=== PATIENT | male | born 1985 | race Caucasian/White ===

== ENCOUNTER 2019-02-02 02:10 | Emergency (ER) | payer OTHER ==
[~2019-02-02] VITALS: Ht 185.4 cm; Wt 86.4 kg
[2019-02-02] MEDS ORDERED: LIB5 PO (02:35)
[2019-02-02 04:35] VITALS: BP 141/97
== END 2019-02-02 04:39 | disposition home or self-care (01) ==
LOC: EMS 02:12
DX: R04.2 Hemoptysis (principal); F17.210 Nicotine dependence, cigarettes, uncomplicated

== ENCOUNTER 2021-11-16 20:28 | Emergency (ER) | payer OTHER ==
[~2021-11-16] VITALS: Ht 182.9 cm; Wt 86.8 kg
[~2021-11-16 20:28] MED LIST: CHLO5CAP4 PO
[2021-11-16 22:49] LABS: BASOPHILS % (AUTO) 1.4 % (0.0-2.0); EOSINOPHILS % (AUTO) 1.8 % (1.0-6.0); HEMATOCRIT 40.7 % (41-53); HEMOGLOBIN 14.1 g/dL (13.5-17.5); LYMPHOCYTES # (AUTO) 1.6 K/uL (1.0-4.8); LYMPHOCYTES % (AUTO) 29.6 % (22.0-44.0); MEAN CORPUSCULAR HEMOGLOBIN 33.3 pg (26.0-34.0); MEAN CORPUSCULAR HGB CONC 34.5 G/dL (31.0-37.0); MEAN CORPUSCULAR VOLUME 96 fL (80-100); MONOCYTES # (AUTO) 0.8 K/uL (0.1-1.0); MONOCYTES % (AUTO) 16.1 % (2.0-9.0); NEUTROPHILS # (AUTO) 2.7 K/uL (1.8-7.7); NEUTROPHILS % (AUTO) 51.1 % (40.0-70.0); PLATELET COUNT (AUTO) 121 K/uL (150-450); RED BLOOD CELL COUNT(AUTO) 4.22 MIL/uL (4.50-5.90); RED CELL DISTRIBUTION WIDTH 16.6 % (11.5-14.5)
[2021-11-16 22:59] LABS: ALANINE AMINOTRANSFERASE 240 U/L (12-78); ALKALINE PHOSPHATASE 141 U/L (46-116); ANION GAP 17 mmol/L (8-16); ASPARTATE AMINOTRANSFERASE 374 U/L (15-37); BILIRUBIN,TOTAL 1.1 mg/dL (0.1-1.0); CALCIUM, TOTAL 9.4 mg/dL (8.8-10.5); CARBON DIOXIDE 27 mmol/L (22-29); CHLORIDE 100 mmol/L (98-107); CREATININE 0.64 mg/dL (0.60-1.30); GLUCOSE,RANDOM 104 mg/dL (70-110); PHOSPHORUS 3.2 mg/dL (2.5-4.9); SODIUM SERUM 144 mmol/L (136-145); TOTAL PROTEIN, SERUM 8.6 g/dL (6.4-8.2); UREA NITROGEN, BLOOD 7 mg/dL (7-18)
[2021-11-16 23:04] LABS: GLOMERULAR FILTR. RATE CALC > 60 mL/min (>60)
[2021-11-16] MEDS ORDERED: MAGNESIUM OXIDE 400 MG TABLET PO ONE (23:15)
[2021-11-16] MEDS ORDERED: POTASSIUM CHLORIDE 20 MEQ ER TABLET PO ONE (23:15)
[2021-11-16 23:26] VITALS: BP 129/87
== END 2021-11-16 23:43 | disposition home or self-care (01) ==
LOC: EMS 20:31
DX: F10.239 Alcohol dependence with withdrawal, unspecified (principal); E87.6 Hypokalemia; E83.42 Hypomagnesemia; F17.210 Nicotine dependence, cigarettes, uncomplicated; Z85.89 Personal history of malignant neoplasm of other organs and systems; Z98.890 Other specified postprocedural states; Y90.8 Blood alcohol level of 240 mg/100 ml or more
CPT/HCPCS: 99283; 80053; 83735; 84100; 85025; 36415; G0480

== ENCOUNTER 2022-08-02 01:39 | Emergency (ER) | payer OTHER ==
[~2022-08-02] VITALS: Ht 182.9 cm; Wt 84.1 kg
[2022-08-02] MEDS ORDERED: MAGNESIUM SULFATE 2 GM, MVI, ADULT NO.1 WITH VIT K 10 ML, THIAMINE 100 MG, FOLIC ACID 1... IV ONE ×5 (02:00)
[2022-08-02 02:24] LABS: BASOPHILS % (AUTO) 0.5 % (0.0-2.0); EOSINOPHILS % (AUTO) 0.9 % (1.0-6.0); HEMATOCRIT 39.5 % (41-53); HEMOGLOBIN 13.5 g/dL (13.5-17.5); LYMPHOCYTES % (AUTO) 41.3 % (22.0-44.0); MEAN CORPUSCULAR HEMOGLOBIN 31.6 pg (26.0-34.0); MEAN CORPUSCULAR HGB CONC 34.1 G/dL (31.0-37.0); MEAN CORPUSCULAR VOLUME 93 fL (80-100); MONOCYTES # (AUTO) 0.6 K/uL (0.1-1.0); MONOCYTES % (AUTO) 7.8 % (2.0-9.0); NEUTROPHILS # (AUTO) 3.6 K/uL (1.8-7.7); NEUTROPHILS % (AUTO) 49.5 % (40.0-70.0); PLATELET COUNT (AUTO) 85 K/uL (150-450); RED BLOOD CELL COUNT(AUTO) 4.26 MIL/uL (4.50-5.90); RED CELL DISTRIBUTION WIDTH 14.1 % (11.5-14.5)
[2022-08-02 02:35] LABS: ANION GAP 9 mmol/L (8-16); CALCIUM, TOTAL 8.3 mg/dL (8.8-10.5); CARBON DIOXIDE 27 mmol/L (22-29); CHLORIDE 104 mmol/L (98-107); CREATININE 0.64 mg/dL (0.60-1.30); GLOMERULAR FILTR. RATE CALC > 60 mL/min (>60); GLUCOSE,RANDOM 117 mg/dL (70-110); POTASSIUM 3.4 mmol/L (3.5-5.1); SODIUM SERUM 140 mmol/L (136-145); UREA NITROGEN, BLOOD 10 mg/dL (7-18)
[2022-08-02 02:39] LABS: INR 1.1 (0.9-1.1); PROTHROMBIN TIME 11.4 SEC (9.4-11.6)
[2022-08-02 02:41] LABS: ALANINE AMINOTRANSFERASE 35 U/L (12-78); ALBUMIN 3.7 g/dL (3.4-5.0); ALKALINE PHOSPHATASE 102 U/L (46-116); ASPARTATE AMINOTRANSFERASE 72 U/L (15-37); BILIRUBIN,TOTAL 0.5 mg/dL (0.1-1.0); TOTAL PROTEIN, SERUM 7.9 g/dL (6.4-8.2)
[2022-08-02 02:49] LABS: B-TYPE NATRIURETIC PEPTIDE < 5 pg/mL (0-100)
[2022-08-02] MEDS ORDERED: ChlordiazePOXIDE HCL 25 MG CAPSULE PO ONE ×2 (03:00→06:15)
[2022-08-02 05:16] LABS: APPEARANCE,URINE CLEAR (CLEAR); BILIRUBIN,URINE NEGATIVE (NEGATIVE); GLUCOSE, URINE (UA) NEGATIVE (NEGATIVE); KETONES,URINE NEGATIVE (NEGATIVE); LEUKOCYTE ESTERASE ,URINE NEGATIVE (NEGATIVE); NITRATE,URINE NEGATIVE (NEGATIVE); OCCULT BLOOD,URINE NEGATIVE (NEGATIVE); PH,URINE 6.5 (5.0-8.0); PROTEIN,URINE TRACE mg/dL (NEGATIVE); SPECIFIC GRAVITIY, URINE 1.014 (1.003-1.030); UROBILINOGEN,URINE <=1.0 mg/dL (<=1.0)
[2022-08-02] MEDS ORDERED: LIB25 PO (05:46)
[2022-08-02 06:23] VITALS: BP 138/88
== END 2022-08-02 06:25 | disposition home or self-care (01) ==
LOC: EMS 01:40
DX: F10.129 Alcohol abuse with intoxication, unspecified (principal); R07.89 Other chest pain; F41.9 Anxiety disorder, unspecified; I10 Essential (primary) hypertension; F17.210 Nicotine dependence, cigarettes, uncomplicated; Z98.890 Other specified postprocedural states
CPT/HCPCS: 99285; 96365; 71045; 80053; 81003; 83735; 83880; 84484; 85025; 85610; 85730; 36415; 93005; G0480; J3490 ×2; J3411; J3475; J7030

== ENCOUNTER 2022-11-09 12:59 | Emergency (ER) | payer MEDICAID, OTHER ==
[~2022-11-09] VITALS: Ht 182.9 cm; Wt 83.0 kg
[~2022-11-09 12:59] MED LIST changes: -CHLO5CAP4 PO; +LIB25 PO
[2022-11-09 13:00] VITALS: BP 150/99; PULSE 125; RESP 16; TEMP 98.3
== END 2022-11-09 15:27 | disposition left against medical advice (07) ==
LOC: EMS 12:59
DX: Z53.21 Procedure and treatment not carried out due to patient leaving prior to being seen by health care provider (principal)
CPT/HCPCS: 99281; Z7502

== ENCOUNTER 2022-11-09 15:30 | Inpatient (IN) | payer OTHER ==
[~2022-11-09] VITALS: Ht 182.9 cm; Wt 92.0 kg
[2022-11-09] MEDS ORDERED: LORazepam 2 MG/ML VIAL IVP ONE (16:00)
[2022-11-09 16:20] LABS: EOSINOPHILS % (AUTO) 1.5 % (1.0-6.0); HEMATOCRIT 43.8 % (41-53); HEMOGLOBIN 14.9 g/dL (13.5-17.5); LYMPHOCYTES # (AUTO) 2.8 K/uL (1.0-4.8); LYMPHOCYTES % (AUTO) 28.5 % (22.0-44.0); MEAN CORPUSCULAR HEMOGLOBIN 31.5 pg (26.0-34.0); MEAN CORPUSCULAR HGB CONC 34.1 G/dL (31.0-37.0); MEAN CORPUSCULAR VOLUME 93 fL (80-100); MONOCYTES # (AUTO) 0.9 K/uL (0.1-1.0); MONOCYTES % (AUTO) 8.8 % (2.0-9.0); NEUTROPHILS # (AUTO) 5.9 K/uL (1.8-7.7); NEUTROPHILS % (AUTO) 60.2 % (40.0-70.0); PLATELET COUNT (AUTO) 152 K/uL (150-450); RED BLOOD CELL COUNT(AUTO) 4.73 MIL/uL (4.50-5.90); RED CELL DISTRIBUTION WIDTH 13.8 % (11.5-14.5)
[2022-11-09 16:24] LABS: COVID AG,FIA SOURCE NASOPHARYNGEAL
[2022-11-09 16:52] LABS: ANION GAP 13 mmol/L (8-16); CALCIUM, TOTAL 8.4 mg/dL (8.8-10.5); CARBON DIOXIDE 28 mmol/L (22-29); CHLORIDE 101 mmol/L (98-107); CREATININE 0.67 mg/dL (0.60-1.30); GLOMERULAR FILTR. RATE CALC > 60 mL/min (>60); GLUCOSE,RANDOM 85 mg/dL (70-110); POTASSIUM 3.2 mmol/L (3.5-5.1); SODIUM SERUM 141 mmol/L (136-145)
[2022-11-09 17:02] LABS: ALANINE AMINOTRANSFERASE 63 U/L (12-78); ALKALINE PHOSPHATASE 91 U/L (46-116); ASPARTATE AMINOTRANSFERASE 92 U/L (15-37); TOTAL PROTEIN, SERUM 7.7 g/dL (6.4-8.2)
[2022-11-09 17:04] LABS: MAGNESIUM 1.6 mg/dL (1.80-2.40); PHOSPHORUS 1.9 mg/dL (2.5-4.9)
[2022-11-09] MEDS ORDERED: ACETAMINOPHEN 325 MG TABLET PO PRN (17:30)
[2022-11-09] MEDS ORDERED: MAGNESIUM SULFATE 1 GM in DEXTROSE 5%-WATER 50 ML IV ONE (17:30)
[2022-11-09] MEDS ORDERED: ONDANSETRON HCL 4 MG/2 ML VIAL IVP PRN (17:30)
[2022-11-09] MEDS ORDERED: POTASSIUM PHOS,M-BASIC-D-BASIC 20 MMOL in DEXTROSE 5%-WATER 150 ML IV ONE (17:30)
[2022-11-09] MEDS ORDERED: 0.9% SODIUM CHLORIDE 10 ML SYRINGE IVP PRN (17:30)
[2022-11-09 20:58] VITALS: BP 142/91; PULSE 92; RESP 22; TEMP 98.1
[2022-11-09 21:56] VITALS: BP 142/91
[2022-11-09] MEDS ORDERED: MAGNESIUM OXIDE 400 MG TABLET PO PRN (22:00)
[2022-11-09] MEDS ORDERED: 1: MAGNESIUM SULFATE 2 GM, MVI, ADULT NO.1 WITH VIT K 10 ML, THIAMINE 100 MG, FOLIC ACID IV SCH ×5 (22:00)
[2022-11-09] MEDS ORDERED: POTASSIUM CHLORIDE 20 MEQ ER TABLET PO PRN (22:00)
[2022-11-09] MEDS ORDERED: POTASSIUM CHL 10 MEQ/WATER 50 ML IV PRN (22:00)
[2022-11-09] MEDS ORDERED: MAGNESIUM SULFATE 2 GM/WATER 50 ML IV PRN (22:00)
[2022-11-09] MEDS ORDERED: SODIUM,POTASSIUM PHOSPHATES POWDER PACKET PO ONE (22:00)
[2022-11-09] MEDS ORDERED: MAGNESIUM SULFATE 4 GM/WATER 100 ML IV PRN (22:00)
[2022-11-09] MEDS ORDERED: SODIUM CHLORIDE 0.9% 250 ML IV ONE (22:17)
[2022-11-09] MEDS: LORazepam 2 MG TABLET PO PRN (22:20)
[2022-11-10 00:09] VITALS: BP 135/81; PULSE 84; RESP 22; TEMP 98.3
[2022-11-10] MEDS: HEPARIN SODIUM,PORCINE 5,000 UNITS/ML VIAL SQ SCH ×3 (00:12→16:19)
[2022-11-10] MEDS: LORazepam 2 MG TABLET PO PRN (00:30)
[2022-11-10 05:28] VITALS: BP 127/76; PULSE 70; RESP 16; TEMP 97.9
[2022-11-10] MEDS ORDERED: LORazepam 2 MG TABLET PO PRN (07:00)
[2022-11-10 07:06] LABS: BASOPHILS % (AUTO) 0.8 % (0.0-2.0); EOSINOPHILS % (AUTO) 3.3 % (1.0-6.0); HEMATOCRIT 41.1 % (41-53); LYMPHOCYTES # (AUTO) 1.5 K/uL (1.0-4.8); LYMPHOCYTES % (AUTO) 22.5 % (22.0-44.0); MEAN CORPUSCULAR HEMOGLOBIN 31.6 pg (26.0-34.0); MEAN CORPUSCULAR HGB CONC 34.1 G/dL (31.0-37.0); MEAN CORPUSCULAR VOLUME 93 fL (80-100); MONOCYTES # (AUTO) 0.5 K/uL (0.1-1.0); MONOCYTES % (AUTO) 8.1 % (2.0-9.0); NEUTROPHILS # (AUTO) 4.2 K/uL (1.8-7.7); NEUTROPHILS % (AUTO) 65.3 % (40.0-70.0); PLATELET COUNT (AUTO) 125 K/uL (150-450); RED BLOOD CELL COUNT(AUTO) 4.43 MIL/uL (4.50-5.90); RED CELL DISTRIBUTION WIDTH 13.9 % (11.5-14.5)
[2022-11-10 07:31] LABS: ALANINE AMINOTRANSFERASE 62 U/L (12-78); ALBUMIN 3.4 g/dL (3.4-5.0); ALKALINE PHOSPHATASE 86 U/L (46-116); ANION GAP 9 mmol/L (8-16); ASPARTATE AMINOTRANSFERASE 92 U/L (15-37); CALCIUM, TOTAL 7.9 mg/dL (8.8-10.5); CARBON DIOXIDE 28 mmol/L (22-29); CHLORIDE 102 mmol/L (98-107); CREATININE 0.63 mg/dL (0.60-1.30); GLOMERULAR FILTR. RATE CALC > 60 mL/min (>60); GLUCOSE,RANDOM 86 mg/dL (70-110); POTASSIUM 3.4 mmol/L (3.5-5.1); SODIUM SERUM 139 mmol/L (136-145); TOTAL PROTEIN, SERUM 6.9 g/dL (6.4-8.2)
[2022-11-10] MEDS: DOCUSATE SODIUM 100 MG CAPSULE PO SCH ×2 (08:13→20:41)
[2022-11-10 08:17] VITALS: BP 135/63; PULSE 77; RESP 18; TEMP 98
[2022-11-10] MEDS ORDERED: LORazepam 2 MG TABLET PO SCH (09:00)
[2022-11-10] MEDS ORDERED: MAGNESIUM SULFATE 4 GM/WATER 100 ML IV PRN (10:00)
[2022-11-10] MEDS ORDERED: MAGNESIUM SULFATE 2 GM/WATER 50 ML IV PRN (10:00)
[2022-11-10] MEDS ORDERED: LORazepam 2 MG/ML VIAL IVP PRN (10:00)
[2022-11-10] MEDS ORDERED: MAGNESIUM OXIDE 400 MG TABLET PO PRN (10:00)
[2022-11-10] MEDS ORDERED: POTASSIUM CHL 10 MEQ/WATER 50 ML IV PRN (10:00)
[2022-11-10 11:25] VITALS: BP 117/80; PULSE 62; RESP 19; TEMP 98.3
[2022-11-10 15:21] VITALS: BP 134/75; PULSE 63; RESP 18; TEMP 98.9
[2022-11-10] MEDS ORDERED: ChlordiazePOXIDE HCL 25 MG CAPSULE PO PRN (16:00)
[2022-11-10] MEDS: ChlordiazePOXIDE HCL 25 MG CAPSULE PO SCH ×2 (16:19→20:41)
[2022-11-10] MEDS: ONDANSETRON HCL 4 MG/2 ML VIAL IVP PRN (19:28)
[2022-11-10 20:19] VITALS: BP 146/94; PULSE 83; RESP 20; TEMP 98.5
[2022-11-11] VITALS (7 sets, daily range): BP systolic 114–151; BP diastolic 68–97; PULSE 60–110; RESP 17–20; TEMP 97.7–98.5
[2022-11-11] MEDS: HEPARIN SODIUM,PORCINE 5,000 UNITS/ML VIAL SQ SCH ×3 (01:48→15:12)
[2022-11-11] MEDS: ACETAMINOPHEN 325 MG TABLET PO PRN ×2 (05:07→20:03)
[2022-11-11] MEDS: POTASSIUM CHLORIDE 20 MEQ ER TABLET PO PRN ×2 (05:08→12:32)
[2022-11-11] MEDS ORDERED: ChlordiazePOXIDE HCL 25 MG CAPSULE PO PRN (07:00)
[2022-11-11] MEDS ORDERED: ChlordiazePOXIDE HCL 25 MG CAPSULE PO SCH (09:00)
[2022-11-11] MEDS: DOCUSATE SODIUM 100 MG CAPSULE PO SCH ×2 (09:02→20:03)
[2022-11-11] MEDS: ONDANSETRON HCL 4 MG/2 ML VIAL IVP PRN (09:02)
[2022-11-11] MEDS: ChlordiazePOXIDE HCL 25 MG CAPSULE PO SCH ×4 (09:02→20:03)
[2022-11-11 09:48] LABS: ALANINE AMINOTRANSFERASE 66 U/L (12-78); ALBUMIN 3.4 g/dL (3.4-5.0); ALKALINE PHOSPHATASE 89 U/L (46-116); ANION GAP 13 mmol/L (8-16); ASPARTATE AMINOTRANSFERASE 94 U/L (15-37); BILIRUBIN,TOTAL 1.6 mg/dL (0.1-1.0); CALCIUM, TOTAL 8.3 mg/dL (8.8-10.5); CARBON DIOXIDE 25 mmol/L (22-29); CHLORIDE 101 mmol/L (98-107); CREATININE 0.56 mg/dL (0.60-1.30); GLOMERULAR FILTR. RATE CALC > 60 mL/min (>60); GLUCOSE,RANDOM 96 mg/dL (70-110); LIPASE 34 U/L (16-77); POTASSIUM 3.4 mmol/L (3.5-5.1); SODIUM SERUM 139 mmol/L (136-145); TOTAL PROTEIN, SERUM 6.9 g/dL (6.4-8.2)
[2022-11-12] MEDS: HEPARIN SODIUM,PORCINE 5,000 UNITS/ML VIAL SQ SCH ×3 (00:56→16:38)
[2022-11-12 00:59] VITALS: BP 135/84; PULSE 89; RESP 18; TEMP 98
[2022-11-12 05:30] VITALS: BP 135/71; PULSE 75; RESP 18; TEMP 98.3
[2022-11-12] MEDS ORDERED: LORazepam 1 MG TABLET PO PRN (07:00)
[2022-11-12 08:32] VITALS: BP 133/99; PULSE 98; RESP 17; TEMP 97.7
[2022-11-12] MEDS ORDERED: CITALOPRAM HYDROBROMIDE 20 MG TABLET PO SCH (09:00)
[2022-11-12] MEDS ORDERED: LORazepam 1 MG TABLET PO SCH (09:00)
[2022-11-12] MEDS: DOCUSATE SODIUM 100 MG CAPSULE PO SCH ×2 (09:49→20:53)
[2022-11-12] MEDS: ChlordiazePOXIDE HCL 25 MG CAPSULE PO SCH (09:50)
[2022-11-12] MEDS: ACETAMINOPHEN 325 MG TABLET PO PRN (09:57)
[2022-11-12 11:00] VITALS: BP 118/76; PULSE 86; RESP 17; TEMP 97.7
[2022-11-12 15:00] VITALS: BP 126/85; PULSE 72; RESP 18; TEMP 98.6
[2022-11-12] MEDS ORDERED: ChlordiazePOXIDE HCL 10 MG CAPSULE PO SCH (16:00)
[2022-11-12] MEDS ORDERED: LORazepam 2 MG TABLET PO PRN (17:45)
[2022-11-12] MEDS ORDERED: CITA-144 PO (17:45)
[2022-11-12] MEDS ORDERED: MULTIVITAMINS WITH MINERALS, THERAPEUTIC TABLET PO SCH (17:45)
[2022-11-12] MEDS ORDERED: HEPA500018 SQ (17:47)
[2022-11-12] MEDS ORDERED: ACET-784 PO (17:50)
[2022-11-12] MEDS ORDERED: ONDA4TAB96 PO (17:51)
[2022-11-12] MEDS ORDERED: MAGN400T29 PO (17:51)
[2022-11-12] MEDS ORDERED: MULT-413 PO (17:59)
[2022-11-12] MEDS ORDERED: LORA-1001 PO (18:42)
[2022-11-12 20:44] VITALS: BP 143/90; PULSE 102; RESP 18; TEMP 98.6
[2022-11-12 23:34] LABS: COVID AG,FIA SOURCE NASOPHARYNGEAL
[2022-11-13] MEDS ORDERED: ChlordiazePOXIDE HCL 10 MG CAPSULE PO PRN (07:00)
[2022-11-13] MEDS ORDERED: LORazepam 1 MG TABLET PO PRN (07:00)
[2022-11-13] MEDS ORDERED: ChlordiazePOXIDE HCL 10 MG CAPSULE PO SCH (09:00)
[2022-11-14] MEDS ORDERED: ChlordiazePOXIDE HCL 10 MG CAPSULE PO PRN (07:00)
== END 2022-11-12 23:00 | DRG 433 ==
LOC: EMS 15:31 → 5S 20:00
PROVIDERS: ADMIT Internal Medicine; ATTEND Internal Medicine
DX: K70.10 Alcoholic hepatitis without ascites (principal); F10.239 Alcohol dependence with withdrawal, unspecified; R45.851 Suicidal ideations; E83.39 Other disorders of phosphorus metabolism; E83.42 Hypomagnesemia; Z20.822 Contact with and (suspected) exposure to COVID-19; F32.9 Major depressive disorder, single episode, unspecified; F10.229 Alcohol dependence with intoxication, unspecified; E87.6 Hypokalemia; F41.9 Anxiety disorder, unspecified; I10 Essential (primary) hypertension; Z79.899 Other long term (current) drug therapy; Z85.6 Personal history of leukemia; Z87.891 Personal history of nicotine dependence
CPT/HCPCS: 70450; 70486; 80053; 82040; 83690; 83735; 84100; 84132; 85025; 99285; G0480; J1644; J2060; J2405; J3411; J3475; J3490; J7030; J7050; J7060

== ENCOUNTER 2022-11-12 15:13 | Inpatient (IN) | payer MEDICAID ==
[~2022-11-12] VITALS: Ht 182.9 cm; Wt 84.0 kg
[2022-11-12] MEDS ORDERED: CITA-144 PO (17:45)
[2022-11-12] MEDS ORDERED: HEPA500018 SQ (17:47)
[2022-11-12] MEDS ORDERED: ACET-784 PO (17:50)
[2022-11-12] MEDS ORDERED: ONDA4TAB96 PO (17:51)
[2022-11-12] MEDS ORDERED: MAGN400T29 PO (17:51)
[2022-11-12] MEDS ORDERED: MULT-413 PO (17:59)
[2022-11-12] MEDS ORDERED: LORA-1001 PO (18:42)
[2022-11-13] MEDS ORDERED: ZOLPIDEM TARTRATE 10 MG TABLET PO PRN (00:15)
[2022-11-13] MEDS ORDERED: HALOPERIDOL 5 MG TABLET PO PRN (00:15)
[2022-11-13] MEDS ORDERED: LORazepam 2 MG TABLET PO PRN (00:15)
[2022-11-13 00:49] VITALS: BP 127/86; PULSE 90; RESP 18; TEMP 97.2; O2SAT 99
[2022-11-13 08:16] VITALS: BP 130/96; PULSE 89; RESP 20; TEMP 98; O2SAT 96
[2022-11-13] MEDS ORDERED: BENZOCAINE/MENTHOL LOZENGE PO PRN (08:30)
[2022-11-13] MEDS ORDERED: ONDANSETRON HCL 4 MG TABLET PO PRN (08:30)
[2022-11-13] MEDS ORDERED: DOCUSATE SODIUM 100 MG CAPSULE PO PRN (08:30)
[2022-11-13] MEDS ORDERED: OMEPRAZOLE 20 MG CAPSULE PO PRN (08:30)
[2022-11-13] MEDS ORDERED: ACETAMINOPHEN 325 MG TABLET PO PRN (08:30)
[2022-11-13] MEDS ORDERED: MAGNESIUM HYDROXIDE SUSPENSION 30 ML UDCUP PO PRN (08:30)
[2022-11-13] MEDS ORDERED: LOPERAMIDE HCL 2 MG CAPSULE PO PRN (08:30)
[2022-11-13] MEDS ORDERED: BACITRACIN 28 GM OINTMENT TP PRN (08:30)
[2022-11-13] MEDS ORDERED: MAG HYDROX/AL HYDROX/SIMETH ES 30 ML SUSPENSION UDCUP PO PRN (08:30)
[2022-11-13] MEDS ORDERED: CloNIDine HCL 0.1 MG TABLET PO PRN (08:30)
[2022-11-13] MEDS ORDERED: PETROLATUM,WHITE 28 GM JELLY TP PRN (08:30)
[2022-11-13] MEDS ORDERED: IBUPROFEN 600 MG TABLET PO PRN (08:30)
[2022-11-13] MEDS ORDERED: ALBUTEROL SULFATE HFA 90 MCG/PUFF 8 GM INHALER IH PRN (08:30)
[2022-11-13] MEDS ORDERED: CITALOPRAM HYDROBROMIDE 20 MG TABLET PO SCH (09:00)
== END 2022-11-13 13:00 | disposition home or self-care (01) | DRG 751 ==
LOC: B2S 23:30
PROVIDERS: ADMIT Psychiatry & Neurology Psychiatry; ATTEND Psychiatry & Neurology Psychiatry
DX: F23 Brief psychotic disorder (principal); F10.10 Alcohol abuse, uncomplicated; F41.9 Anxiety disorder, unspecified; G47.00 Insomnia, unspecified; Z72.0 Tobacco use
CPT/HCPCS: 87081; Z7610